=== PATIENT | female | born 1985 | race African-American/Black ===

== ENCOUNTER 2020-08-09 10:19 | Outpatient (REF) | payer OTHER, SELFPAY ==
[2020-08-09 11:19] LABS: MANUAL DIFF FLAG NO
[2020-08-09 11:23] LABS: Basophils Absolute Auto 0.1 X10*3/uL (0.0-0.2); Eosinophils Absolute Auto 0.2 X10*3/uL (0.0-0.4); Eosinophils Percent Auto 2.7 % (0-4); Hematocrit 39.6 % (37-47); Hemoglobin 12.3 g/dl (12.0-16.0); Imm Gran Abs Auto 0.04 X10*3/uL (0.00-0.03); Imm Gran Pct Auto 0.4 % (0.0-0.4); Lymphocytes Absolute Auto 2.6 X10*3/uL (1.2-4.9); Lymphocytes Percent Auto 28.5 % (20-40); Mean Corpuscular HGB Conc 31.1 g/dl (31.0-35.0); Mean Platelet Volume 10.1 fL (9.4-12.3); Monocytes Absolute Auto 0.6 X10*3/uL (0.1-1.2); Monocytes Percent Auto 6.3 % (2-11); Neutrophils Absolute Auto 5.5 X10*3/uL (2.0-8.3); Neutrophils Percent Auto 61.1 % (45-73); Platelet Count 308 X10*3/uL (160-400); Red Blood Count 4.55 X10*6/uL (4.20-5.50); Red Cell Distribution Width 14.6 % (11.0-16.0)
[2020-08-09 11:54] LABS: Anion Gap 12 (12-20); Blood Urea Nitrogen 10 mg/dL (9-16); Calcium 8.9 mg/dL (8.4-10.2); Carbon Dioxide 23 mmol/L (22-29); Chloride 109 mmol/L (96-108); Estimated Glomerular Filt Rate > 60; Glucose Fasting 98 mg/dL (60-99); Potassium 4.1 mmol/l (3.3-5.1); Sodium 140 mmol/L (135-145)
[2020-08-09 12:01] LABS: TSH reflex Free T4 1.02 mIU/mL (0.32-4.0)
[2020-08-10 11:47] LABS: LDL Cholesterol Direct 116 mg/dL (<100)
== END 2020-08-09 10:20 | disposition home or self-care (01) ==
LOC: HO.HMGCLDS 10:19
PROVIDERS: PCP Internal Medicine; Visit Provider Internal Medicine
DX: E66.9 Obesity, unspecified (principal); Z91.09 Other allergy status, other than to drugs and biological substances; R09.81 Nasal congestion; Z00.01 Encounter for general adult medical examination with abnormal findings
CPT/HCPCS: 36415; 80048; 83721; 84443; 85025

== ENCOUNTER 2020-09-02 09:02 | Outpatient (REF) | payer OTHER, SELFPAY | END 2020-09-02 09:03 | disposition home or self-care (01) | LOC: HO.LAB 09:02 | PROVIDERS: PCP Internal Medicine; Referring Provider Advanced Practice Midwife; Visit Provider Advanced Practice Midwife | DX: O20.0 Threatened abortion (principal) | CPT/HCPCS: 81025; 84702; 86850; 86900; 86901; 99211 ==

== ENCOUNTER 2020-09-18 13:26 | Outpatient (REF) | payer OTHER, SELFPAY | END 2020-09-18 13:27 | disposition home or self-care (01) | LOC: HO.LAB 13:26 | PROVIDERS: PCP Internal Medicine; Visit Provider Obstetrics & Gynecology | DX: O09.521 Supervision of elderly multigravida, first trimester (principal); O16.1 Unspecified maternal hypertension, first trimester | CPT/HCPCS: 81003; 99212 ==

== ENCOUNTER 2020-09-20 15:36 | Outpatient (REF) | payer OTHER, SELFPAY ==
--- NOTE | 2020-09-20 15:43 | US_ITS ---
EXAMINATION: OBSTETRICAL ULTRASOUND, FIRST TRIMESTER HISTORY: 35-year-old at 10.1 weeks AMA Viability LMP: 07/11/2020 COMPARISON: None in this TECHNIQUE: Real time transabdominal imaging with color and M-mode Doppler. FINDINGS: A single, live IUP CRL of 32.7 mm c/w 10.2wks is noted. Heart Rate: 169 beats per minute. Both maternal ovaries are seen and appear normal. GESTATIONAL AGE: 1. GA from LMP: 10.1 wks 2. GA from AUA: 10.2 wks ESTIMATED DATE OF DELIVERY: 1. HELLEN from LMP: 04/17/2021 2. HELLEN from AUA: 04/16/2021 US/US OB <= 14 weeks fetus IMPRESSION: 1. A single live IUP 2. CRL corresponds to 10.2 weeks of gestation confirming her HELLEN of 04/17/2021 Thank you very much for this referral.
[2020-09-20 17:04] LABS: MANUAL DIFF FLAG NO
[2020-09-20 17:05] LABS: Basophils Absolute Auto 0.1 X10*3/uL (0.0-0.2); Basophils Percent Auto 0.6 % (0-2); Eosinophils Absolute Auto 0.1 X10*3/uL (0.0-0.4); Hematocrit 37.1 % (37-47); Hemoglobin 12.2 g/dl (12.0-16.0); Imm Gran Abs Auto 0.03 X10*3/uL (0.00-0.03); Imm Gran Pct Auto 0.3 % (0.0-0.4); Lymphocytes Absolute Auto 2.1 X10*3/uL (1.2-4.9); Lymphocytes Percent Auto 21.5 % (20-40); Mean Corpuscular HGB Conc 32.9 g/dl (31.0-35.0); Mean Corpuscular Hemoglobin 27.4 pg (27.0-33.0); Mean Corpuscular Volume 83.2 fL (80-98); Mean Platelet Volume 9.8 fL (9.4-12.3); Monocytes Absolute Auto 0.4 X10*3/uL (0.1-1.2); Neutrophils Absolute Auto 7.2 X10*3/uL (2.0-8.3); Neutrophils Percent Auto 72.6 % (45-73); Platelet Count 314 X10*3/uL (160-400); Red Blood Count 4.46 X10*6/uL (4.20-5.50); Red Cell Distribution Width 12.6 % (11.0-16.0)
[2020-09-20 17:32] LABS: Alanine Aminotransferase 8 U/L (0-31); Albumin Level 4.1 g/dL (3.5-5.0); Alkaline Phosphatase 43 U/L (39-117); Anion Gap 12 (12-20); Aspartate Amino Transferase 11 U/L (5-31); Bilirubin Total 0.7 mg/dL (0.0-1.0); Blood Urea Nitrogen 6 mg/dL (9-16); Calcium 9.3 mg/dL (8.4-10.2); Carbon Dioxide 24 mmol/L (22-29); Chloride 104 mmol/L (96-108); Estimated Glomerular Filt Rate > 60; Glucose Random 87 mg/dL (60-115); Potassium 3.9 mmol/l (3.3-5.1); Sodium 136 mmol/L (135-145); Total Protein 6.6 g/dL (6.5-8.0)
[2020-09-20 17:32] LABS: Creatinine Urine 122.25 mg/dL; Protein/Creatinine Ratio, Ur 0.17 (<0.2); Total Protein Urine Random 21 mg/dL (<12)
[2020-09-20 17:47] LABS: Syphilis Screen Nonreactive (Nonreactive)
[2020-09-23 08:28] LABS: HBsAGNum1 0.25 S/CO (0.00-0.99); HIV AB/AG Nonreactive (Nonreactive); HIV Num 1 0.06 S/CO (0.00-0.99); Hepatitis B Surface Antigen Negative (Negative)
== END 2020-09-20 15:37 | disposition home or self-care (01) ==
LOC: HO.US 15:36
PROVIDERS: Absent Provider Obstetrics & Gynecology; PCP Internal Medicine; Visit Provider Advanced Practice Midwife
DX: O09.511 Supervision of elderly primigravida, first trimester (principal); O16.1 Unspecified maternal hypertension, first trimester; O26.891 Other specified pregnancy related conditions, first trimester; N92.6 Irregular menstruation, unspecified; Z3A.10 10 weeks gestation of pregnancy
CPT/HCPCS: 36415; 76801; 80053; 84156; 85025; 86780; 87086; 87340; 87389

== ENCOUNTER → 2020-09-25 14:03 | Outpatient (BNVA) | payer OTHER, SELFPAY | PROVIDERS: Visit Provider Obstetrics & Gynecology | DX: Z76.89 Persons encountering health services in other specified circumstances (principal) | CPT/HCPCS: 99212 ==

== ENCOUNTER → 2020-09-30 09:56 | Outpatient (BNVA) | payer OTHER, SELFPAY | PROVIDERS: PCP Internal Medicine; Visit Provider Advanced Practice Midwife | DX: Z13.89 Encounter for screening for other disorder (principal) | CPT/HCPCS: 99212 ==

== ENCOUNTER 2020-10-04 13:47 | Outpatient (REF) | payer OTHER, SELFPAY ==
--- NOTE | 2020-10-04 13:52 | US_ITS ---
EXAMINATION: OBSTETRICAL ULTRASOUND, FIRST TRIMESTER HISTORY: 35-year-old at 12.1 weeks of gestation AMA NT screening COMPARISON: 09/20/2020 TECHNIQUE: Real time transabdominal imaging with color and M-mode Doppler. FINDINGS: A single, live IUP CRL of 55.5 mm c/w 12.1wks is noted. Heart Rate: 165 beats per minute. Normal yolk sac seen. NT was 1.0.mm. NB Present The embryo appears sonographically wnl for this GA. Both maternal ovaries are seen and appear normal. GESTATIONAL AGE: 1. Established GA: 12.1 wks 2. GA from AUA: 12.2 wks ESTIMATED DATE OF DELIVERY: 1. Established HELLEN: 04/17/2021 2. HELLEN from [facility]: 04/16/2021 US/US OB 1T nuc measure IMPRESSION: 1. A single live IUP 2. Size equals dates 3. NT of 1.0 mm MFM Consultation: I reviewed the ultrasound findings along with significance of NT measurement. The NT of less than 3mm is generally reassuring. However, the sensitivity for T21 detection is only 60%. I reviewed the availability of serum aneuploidy screening which includes cell-free DNA and placental protein based tests. I discussed the sensitivity, false-positive rate, and other limitations associated with each test. I also reviewed the availability of invasive diagnostic tests that are associated small but definite risk of miscarriage. We also reviewed the differences between screening tests and diagnostic tests. After our discussion, she opted for the First trimester screening that is based on cell-free DNA or non-invasive testing (NIPT). The result will be faxed to your office in approximately 7 days. A follow up at 18 weeks for survey has been scheduled. Thank you very much for this referral. Majority of this visit was spent reviewing her care and counselling her in face to face time: Time spent 30 min.
== END 2020-10-04 13:48 | disposition home or self-care (01) ==
LOC: HO.US 13:47
PROVIDERS: Visit Provider Advanced Practice Midwife
DX: Z36.82 Encounter for antenatal screening for nuchal translucency (principal)
CPT/HCPCS: 76813

== ENCOUNTER 2020-10-16 10:05 | Outpatient (REF) | payer OTHER, SELFPAY ==
[2020-10-17 05:18] LABS: Rubella IgG Antibody 6.72 Index
[2020-10-17 09:05] LABS: BV Int Neg Control Negative (Negative); BV Int Pos Control Positive (Positive)
[2020-10-17 12:46] LABS: C. trachomatis RNA TMA DETECTED (NOT DETECTED); N. gonorrhoeae RNA TMA NOT DETECTED (NOT DETECTED)
[2020-10-19 09:32] LABS: HPV mRNA E6/E7 rflx Not Detected (Not Detected)
== END 2020-10-16 10:06 | disposition home or self-care (01) ==
LOC: HO.LAB 10:05
PROVIDERS: Advanced Practice Midwife; Visit Provider Obstetrics & Gynecology
DX: O16.1 Unspecified maternal hypertension, first trimester (principal); Z12.4 Encounter for screening for malignant neoplasm of cervix; Z11.3 Encounter for screening for infections with a predominantly sexual mode of transmission; Z3A.13 13 weeks gestation of pregnancy
CPT/HCPCS: 36415; 86762; 86787; 87480; 87491; 87510; 87591; 87624; 87660; 88142; 99212

== ENCOUNTER 2020-11-07 15:39 | Emergency (ER) | payer OTHER, SELFPAY ==
--- NOTE | ~2020-11-07 | US_ITS ---
EXAMINATION: LIMITED OBSTETRIC ULTRASOUND - SECOND TRIMESTER CLINICAL INFORMATION: Pelvic pain and pressure. Question of placental abnormality COMPARISON: 10/04/2020 TECHNIQUE: Transabdominal imaging of the uterus was performed utilizing arcos scale and color doppler technique, with m-mode imaging. FINDINGS: Single live intrauterine fetus in the breech position with cardiac activity detected at 158 bpm. movement is present. Amniotic fluid grossly within normal limits. Anterior placenta; no previa. No perigestational hemorrhage. Cervix measures 3.6 cm and is closed. US/US OB transvaginal IMPRESSION: * Single live intrauterine fetus with estimated gestational age by ultrasound of 17 weeks 0 days, for an estimated date of delivery 04/17/2021. * Normal placenta. No abruption.
--- NOTE | ~2020-11-07 | US_ITS ---
EXAMINATION: LIMITED OBSTETRIC ULTRASOUND - SECOND TRIMESTER CLINICAL INFORMATION: Pelvic pain and pressure. Question of placental abnormality COMPARISON: 10/04/2020 TECHNIQUE: Transabdominal imaging of the uterus was performed utilizing arcos scale and color doppler technique, with m-mode imaging. FINDINGS: Single live intrauterine fetus in the breech position with cardiac activity detected at 158 bpm. movement is present. Amniotic fluid grossly within normal limits. Anterior placenta; no previa. No perigestational hemorrhage. Cervix measures 3.6 cm and is closed. US/US OB limited IMPRESSION: * Single live intrauterine fetus with estimated gestational age by ultrasound of 17 weeks 0 days, for an estimated date of delivery 04/17/2021. * Normal placenta. No abruption.
[2020-11-07 15:42] VITALS: BP 129/85; PULSE 89; RESP 18; TEMP 36.9; O2SAT 98; BMI 31.2
--- NOTE | 2020-11-07 16:49 | ED.ABDPAIN ---
HPI - Abdominal Pain General Chief Complaint: Abdominal Pain Stated Complaint: belly button infection Time Seen by Provider: 11/07/20 16:30 Source: patient Mode of arrival: ambulatory Limitations: no limitations History of Present Illness HPI narrative: 35-year-old female 17 weeks , presented with 2 days of intermittent lower abdominal cramps, declined any vaginal bleed or discharge, cramps started 2 days ago, intermittent in course, described it as cramps, associated with nausea, but no vaginal bleed or discharge, patient also documented small discharged yesterday from an old piercing above her umbilicus. Patient had history with blood pressure complication with her pregnancies in the past, patient is today blood pressure appear within normal and patient declined any headache or blurry vision or chest pain. Related Data Previous Rx's Medication Instructions Recorded nifedipine 30 mg tablet,extended 30 mg PO DAILY #90 tab 09/18/20 release vitamins with calcium 1 tab PO DAILY 30 Days #30 tab 09/25/20 no.72-iron 29 mg-folic acid 1 mg tablet labetalol 200 mg tablet 200 mg PO BID #120 tab 10/16/20 azithromycin 500 mg tablet 1,000 mg PO ONCE 1 Days #2 tab 10/17/20 cephalexin 500 mg PO BID #14 cap 11/07/20 Allergies Allergy/AdvReac Type Severity Reaction Status Date / Time No Known Allergies Allergy Verified 10/16/20 10:31 Review of Systems Review of Systems All other systems are reviewed and are negative Constitutional: Reports as per HPI and Reports no additional constitutional complaints Eyes: Reports as per HPI and Reports no additional eye complaints Reports system reviewed and no additional complaints, except as documented Cardiovascular: Reports as per HPI and Reports no additional cardiovascular complaints Respiratory: Reports as per HPI and Reports no additional respiratory complaints Gastrointestinal: Reports as per HPI and Reports no additional gastrointestinal complaints Genitourinary: Reports no additional female genitourinary complaints Musculoskeletal: Reports no additional musculoskeletal complaints Skin/Breast: Reports system reviewed and no additional complaints, except as docu Psychiatric: Reports no additional psychiatric complaints Endocrine: Reports no additional endocrine complaints Hematologic/Lymphatic: Reports no additional hematologic/lymphatic complaints Allergic/Immunologic: Reports no additional allergic/immunologic complaints Reports system reviewed and no additional complaints, except as documented and Reports Abnormal speech present Physical Exam Vital Signs: Vital Signs: Last Vital Signs Temp 98.4 F 03/04/21 20:02 Pulse 84 11/07/20 20:04 Resp 22 H 11/07/20 20:02 BP 105/65 11/07/20 20:04 Pulse Ox 100 11/07/20 20:02 Body Mass Index 31.2 Vital signs have been reviewed as appeared to be correct. Blood pressure normal. Heart rate normal. Respiration rate normal. Temperature normal. Oxygen saturation normal. Appearance: Alert. Oriented X3. No acute distress. Head: Normal external exam. Normocephalic. Atraumatic. No Avila signs noted. No raccoon eyes noted Eyes: PERRLA. EOMI. Conjunctiva and sclera normal. Eyelids normal. ENT: TM's Normal. Pharynx normal. Uvula midline. Moist mucous membranes. No trismus noted. No drooling noted. No muffled voice noted. Neck: Normal inspection. Neck supple. FROM. No adenopathy. Thyroid Normal. No meningeal signs. No neck mass noted. CVS: Normal heart rate and rhythm. Heart sound normal. No murmurs noted. Pulses normal throughout. Respiratory: No respiratory distress. Painless inspiration. Breath sounds normal. No wheezes/rales/rhonchi noted. Chest nontender. No accessory muscle usage noted or decreased air movement noted. Abdomen: Soft, mild suprapubic tenderness with no rebound, no guarding. 1 x 1 cm area of redness and hotness above the umbilical area, no discharge. Bowel sounds normal in all 4 quadrants. No distention noted. No organomegaly noted. No visible injury noted. Back: No CVA tenderness. Full range of motion noted. Skin: Skin warm and dry. Normal skin color. Normal skin turgor. No rashes/lesions/lacerations noted. Extremities: No lower extremity edema. Extremities exhibit normal range of motion. Extremities nontender. Neuro: Oriented X 3. No motor deficit. No sensory deficit. Reflexes normal. Course Course Course Narrative: Assessment and plan. 35-year-old female 17 weeks came in with abdominal contractions for the past 2 weeks on and off, no vaginal bleed or discharge, patient had unremarkable ultrasound in the emergency department today, unremarkable vital signs, in particular blood pressure within normal. Patient was instructed to follow-up with her OBGYN doctor (patient already have an appointment next week). Patient has a small cellulitis with slight leukocytosis. Will start patient on Keflex for 7 days. MDM - Abdominal Pain Lab Data Attestation: I reviewed the patient's lab results. Result diagrams: 11/07/20 17:46 11/07/20 17:46 Labs: Lab Results 11/07/20 11/07/20 11/07/20 Range/Units 17:46 17:46 17:46 WBC 11.0 H (4.8-10.8) X10*3/uL RBC 4.02 L (4.20-5.50) X10*6/uL Hgb 11.0 L (12.0-16.0) g/dl Hct 34.2 L (37-47) % MCV 85.1 (80-98) fL MCH 27.4 (27.0-33.0) pg MCHC 32.2 (31.0-35.0) g/dl RDW 13.0 (11.0-16.0) % Plt Count 276 (160-400) X10*3/uL MPV 9.6 (9.4-12.3) fL Immature Gran % (Auto) 0.5 H (0.0-0.4) % Neut % (Auto) 73.5 H (45-73) % Lymph % (Auto) 19.1 L (20-40) % [place] % (Auto) 4.8 (2-11) % Eos % (Auto) 1.6 (0-4) % Baso % (Auto) 0.5 (0-2) % Lymph # (Auto) 2.1 (1.2-4.9) X10*3/uL [place] # (Auto) 0.5 (0.1-1.2) X10*3/uL Eos # (Auto) 0.2 (0.0-0.4) X10*3/uL Baso # (Auto) 0.1 (0.0-0.2) X10*3/uL Abs Immat Gran (auto) 0.06 H (0.00-0.03) X10*3/uL Absolute Neuts (auto) 8.1 (2.0-8.3) X10*3/uL Absolute Nucleated RBC 0.000 (0.0-0.012) X10*3/uL Nucleated RBC % (auto) 0.0 (0.0-0.2) /100WBC Sodium 135 (135-145) mmol/L Potassium 3.6 (3.3-5.1) mmol/L Chloride 105 (96-108) mmol/L Carbon Dioxide 24 (22-29) mmol/L Anion Gap 10 L (12-20) BUN 10 D (9-16) mg/dL Creatinine 0.77 (0.5-1.4) mg/dL Estim Creat Clear Calc 97.3 Estimated GFR > 60 Random Glucose 82 (60-115) mg/dL Calcium 8.8 (8.4-10.2) mg/dL Total Bilirubin 0.4 (0.0-1.0) mg/dL Direct Bilirubin < 0.2 (0.0-0.5) mg/dL AST 11 (5-31) U/L ALT 6 (0-31) U/L Alkaline Phosphatase 42 (39-117) U/L Total Protein 6.2 L (6.5-8.0) g/dL Albumin 3.6 (3.5-5.0) g/dL Lipase 29 (8-78) U/L Beta HCG, Quant 38501 mIU/mL Urine Color YELLOW Urine Appearance CLEAR Urine pH 7.0 (5.0-8.0) Ur Specific [place] 1.020 (1.005-1.025) Urine Protein NEG (NEG-TRACE) MG/DL Urine Glucose (UA) NEG (NEG) MG/DL Urine Ketones 5 (NEG) MG/DL Urine Blood NEG (NEG) Urine Nitrite NEG (NEG) Ur Leukocyte Esterase NEG (NEG) Imaging Data Pelvic ultrasound: Radiologist's impression: * Single live intrauterine fetus with estimated gestational age by ultrasound of 17 weeks 0 days, for an estimated date of delivery 04/17/2021. * Normal placenta. No abruption. Discharge Plan Discharge Clinical Impression: Abdominal pain during , Cellulitis Patient Disposition: Home, Self-Care Instructions: Cellulitis (ED), Abdominal Pain in (ED) Prescriptions: New cephalexin 500 mg capsule 500 mg PO BID Qty: 14 RF: 0 No Action Plus 29 mg iron- 1 mg tablet 1 tab PO DAILY 30 Days Qty: 30 RF: 11 azithromycin [Zithromax] 500 mg tablet 1,000 mg PO ONCE 1 Days Qty: 2 RF: 0 nifedipine 30 mg tablet extended release 30 mg PO DAILY Qty: 90 RF: 3 labetalol 200 mg tablet 200 mg PO BID Qty: 120 RF: 3 Referrals: Trudy Shah MD [Physician] - 1 week Interventions: ED Discharge Assessment Last Done: 11/07/20 21:01 Discharge Date/Time: 11/07/20 21:02 [facility] Past Medical History Medical History Environmental allergies Hypertension affecting Nasal congestion Obesity Surgical History No pertinent past surgical history Family History Family History Father HTN (hypertension) Diabetes mellitus Mother No problems noted. Brother No problems noted. Brother No problems noted. Brother No problems noted. Brother No problems noted. 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 Current occupational exposures/hazards: No
--- NOTE | 2020-11-07 17:42 | PC.NURSE ---
PT TO ULTRASOUND
[2020-11-07 17:55] LABS: MANUAL DIFF FLAG NO
[2020-11-07] MEDS: 0.9 % Sodium Chloride 1,000 ML 999 ML IVCONT (18:00)
[2020-11-07 18:01] LABS: Glucose Urine UA NEG (NEG); Leukocyte Esterase Urine NEG (NEG); Nitrite Urine NEG (NEG); Urine Blood NEG (NEG); Urine Ketones 5 MG/DL (NEG); Urine Protein NEG (NEG-TRACE)
[2020-11-07 18:03] LABS: Basophils Absolute Auto 0.1 X10*3/uL (0.0-0.2); Basophils Percent Auto 0.5 % (0-2); Eosinophils Absolute Auto 0.2 X10*3/uL (0.0-0.4); Eosinophils Percent Auto 1.6 % (0-4); Hematocrit 34.2 % (37-47); Imm Gran Abs Auto 0.06 X10*3/uL (0.00-0.03); Imm Gran Pct Auto 0.5 % (0.0-0.4); Lymphocytes Absolute Auto 2.1 X10*3/uL (1.2-4.9); Lymphocytes Percent Auto 19.1 % (20-40); Mean Corpuscular HGB Conc 32.2 g/dl (31.0-35.0); Mean Corpuscular Hemoglobin 27.4 pg (27.0-33.0); Mean Corpuscular Volume 85.1 fL (80-98); Mean Platelet Volume 9.6 fL (9.4-12.3); Monocytes Absolute Auto 0.5 X10*3/uL (0.1-1.2); Monocytes Percent Auto 4.8 % (2-11); Neutrophils Absolute Auto 8.1 X10*3/uL (2.0-8.3); Neutrophils Percent Auto 73.5 % (45-73); Platelet Count 276 X10*3/uL (160-400); Red Blood Count 4.02 X10*6/uL (4.20-5.50)
[2020-11-07 18:04] LABS: Appearance Urine CLEAR; Color Urine YELLOW
[2020-11-07 18:24] LABS: Alanine Aminotransferase 6 U/L (0-31); Albumin Level 3.6 g/dL (3.5-5.0); Alkaline Phosphatase 42 U/L (39-117); Anion Gap 10 (12-20); Aspartate Amino Transferase 11 U/L (5-31); Bilirubin Direct < 0.2 mg/dL (0.0-0.5); Bilirubin Total 0.4 mg/dL (0.0-1.0); Blood Urea Nitrogen 10 mg/dL (9-16); Calcium 8.8 mg/dL (8.4-10.2); Carbon Dioxide 24 mmol/L (22-29); Chloride 105 mmol/L (96-108); Creatinine Clr Calc Pharmacy 97.3; Estimated Glomerular Filt Rate > 60; Glucose Random 82 mg/dL (60-115); Lipase 29 U/L (8-78); Potassium 3.6 mmol/L (3.3-5.1); Sodium 135 mmol/L (135-145); Total Protein 6.2 g/dL (6.5-8.0)
[2020-11-07 19:02] LABS: HCG Quantitative 19684 mIU/mL
[2020-11-07 20:02] VITALS: BP 101/65; PULSE 83; RESP 22; TEMP 36.9; O2SAT 100
[2020-11-07 20:04] VITALS: BP 105/65; PULSE 84
[2020-11-07] MEDS: cephALEXin 500 MG CAPSULE PO (20:55)
== END 2020-11-07 21:02 | disposition home or self-care (01) ==
PROVIDERS: Emergency Provider Emergency Medicine; PCP Internal Medicine
DX: O26.892 Other specified pregnancy related conditions, second trimester (principal); L03.316 Cellulitis of umbilicus; R10.30 Lower abdominal pain, unspecified; Z3A.17 17 weeks gestation of pregnancy
CPT/HCPCS: 36415; 76815; 76817; 80048; 80076; 81003; 83690; 84702; 85025; 96360; 99283; 99284

== ENCOUNTER → 2020-11-13 11:00 | Outpatient (BNVA) | payer OTHER, SELFPAY | PROVIDERS: Visit Provider Advanced Practice Midwife | DX: O16.1 Unspecified maternal hypertension, first trimester (principal); O09.299 Supervision of pregnancy with other poor reproductive or obstetric history, unspecified trimester; Z36.3 Encounter for antenatal screening for malformations; Z87.59 Personal history of other complications of pregnancy, childbirth and the puerperium | CPT/HCPCS: 81003; 99212 ==

== ENCOUNTER 2020-11-22 14:04 | Outpatient (REF) | payer OTHER, SELFPAY ==
--- NOTE | ~2020-11-22 | US_ITS ---
EXAMINATION: US OBSTETRICAL CLINICAL INFORMATION: 35-year-old at 19.1 weeks of gestation AMA Screening for anomaly COMPARISON: 11/07/2020 TECHNIQUE: Real-time transabdominal ultrasound was performed using C1-5 megahertz transducer. FINDINGS: A single, active, fetus is seen in vertex presentation. The placenta is anterior without previa, and the amniotic fluid volume is wnl. MEASUREMENTS: 1. Biparietal Diameter: 4.4 cm; 19.2 wks 2. Occipital Frontal Diameter: 5.6 cm 3. Head Circumference: 16.5 cm; 19.2 wks 4. Abdominal Circumference: 13.9 cm; 19.3 wks 5. Femur Length: 2.4 cm; 17.1 wks 6. Humerus Length: 2.8 cm; 19.0 wks 7. Tibia Length: 2.6 cm; 19.3 wks 8. Ulna Length: 2.6 cm; 19.3 wks 9. Lateral ventricle: 0.6 cm 10. Cerebellum: 1.9 cm; 19.6 wks 11. Cisterna Magna: 0.5 cm 12. Nuchal Fold: 3.5 mm 13. Heart Rate: 146 beats per minute Rt ovary: Unable to visualize Lt ovary: Unable to visualize Cervical length 3.6 cm on T/A. GESTATIONAL AGE: 1. Established GA: 19.1 wks 2. GA from [facility]: 18.6 wks ESTIMATED DATE OF DELIVERY: 1. Established HELLEN: 04/17/2021 2. HELLEN from [facility]: 04/19/2021 ANATOMY: The visualized anatomy includes but not limited to: 1. Cranium: Normal 2. Intracranial anatomy: cavum septum pellucidi, lateral ventricles, choroid plexus, cerebellum, posterior fossa, third and fourth ventricles. 3. face: orbits, lip/palate, profile, nasal bone 4. Heart: four-chamber view of the heart, ventricular septum, foramen ovale, pulmonary vein, left and right outflow tracts, three-vessel view, 3 vessel trachea view, aortic and ductal arches, situs.. 5. Diaphragm: Normal 6. Abdominal wall: Normal 7. Cord Insertion: Normal 8. Spine: Cervical, thoracic, lumbar, sacral. 9. Stomach: Normal size and shape 10. Right Kidney: Normal 11. Left Kidney: Normal 12. 3 vessel cord: Normal 13. Upper extremity: Open hands, fifth digit. 14. Lower extremity: Tibia, fibula, bilateral feet. 15. Bladder: Normal 16. Genitalia: Female, patient aware US/US OB /maternal detail IMPRESSION: 1. Single, living, intrauterine with appropriate biometry. 2. Normal survey DISCUSSION: I reviewed today's ultrasound findings. We discussed the limitations of ultrasound in diagnosing aneuploidy and other congenital abnormalities. I reviewed the differences between screening test and diagnostic test. Amniocentesis was discussed and declined. She was informed that the baseline incidence of congenital abnormalities is approximately 3-5%. Not all these conditions are diagnosable in utero. RECOMMENDATIONS: 1. No further follow-up is scheduled. Thank you for allowing me to participate in her care. Total time 20 minutes. The time spent was devoted to counseling the patient about the disease and diagnosis, coordinating care including reviewing her records, pertinent lab data and studies, as well as discussing diagnostic evaluation and workup, plan therapeutic interventions and future disposition of care. This includes any additional research needed to obtain further information in formulating the plan of care of this patient. This note was generated with a voice recognition program. Please excuse any errors which may have been overlooked during my review of this note. Sometimes these errors may affect the content or meaning of a given sentence.
== END 2020-11-22 14:05 | disposition home or self-care (01) ==
LOC: HO.US 14:04
PROVIDERS: Visit Provider Advanced Practice Midwife
DX: Z36.3 Encounter for antenatal screening for malformations (principal); O16.2 Unspecified maternal hypertension, second trimester; O09.292 Supervision of pregnancy with other poor reproductive or obstetric history, second trimester; Z3A.19 19 weeks gestation of pregnancy; Z79.899 Other long term (current) drug therapy
CPT/HCPCS: 76811

== ENCOUNTER 2022-09-22 23:51 | Emergency (ER) | payer OTHER, SELFPAY ==
--- NOTE | ~2022-09-22 | XR_ITS ---
EXAMINATION: XR FOOT, LEFT XR ANKLE, LEFT CLINICAL INFORMATION: Twisted ankle COMPARISON: None TECHNIQUE: 3 views of the left foot. 2 additional views of the left ankle. FINDINGS: Left foot: No fracture or dislocation. Alignment maintained. Joint spaces maintained. Mild soft tissue swelling of the forefoot. Left ankle: No fracture or dislocation. The ankle mortise is congruent. The soft tissues are unremarkable. No ankle joint effusion. XR/XR foot LT min 3V IMPRESSION: Mild soft tissue swelling of the forefoot. No fracture or malalignment.
--- NOTE | ~2022-09-22 | XR_ITS ---
EXAMINATION: XR FOOT, LEFT XR ANKLE, LEFT CLINICAL INFORMATION: Twisted ankle COMPARISON: None TECHNIQUE: 3 views of the left foot. 2 additional views of the left ankle. FINDINGS: Left foot: No fracture or dislocation. Alignment maintained. Joint spaces maintained. Mild soft tissue swelling of the forefoot. Left ankle: No fracture or dislocation. The ankle mortise is congruent. The soft tissues are unremarkable. No ankle joint effusion. XR/XR ankle LT 2V IMPRESSION: Mild soft tissue swelling of the forefoot. No fracture or malalignment.
[2022-09-23 00:01] VITALS: BP 140/92; PULSE 98; O2SAT 99
[2022-09-23 00:34] VITALS: BP 158/79; PULSE 89; RESP 16; TEMP 36.6; O2SAT 98; BMI 35.4
[2022-09-23 02:00] VITALS: BP 121/76; PULSE 75; RESP 17; TEMP 36.7
--- OUTSIDE RECORDS SUMMARY | 2022-09-23 03:31 | XMS_ITS | Continuity of Care Document ---
:1985 Author Organization [facility] Address [address] [place] [address]- Care Team Providers Name Role Phone Not on Staff, PCP Primary Care Physician Unavailable Encounter [facility] [place] Date(s): 12/10/20 - 12/10/[address] [id number] Discharge Disposition: A-D/C Home Attending Physician: Lalo PALACIOS, Griselda Admitting Physician: Lalo PALACIOS, Griselda Referring Physician: Griselda May MD Allergies, Adverse Reactions, Alerts Substance Reaction Severity Status NKA Active Immunizations Given and Recorded Vaccine Date Status Refusal Reason influenza virus vaccine, inactivated1 06/02/10 Given influenza virus vaccine, inactivated2 09/09/07 Given Tetanus-Diphth Toxoids, Adult (oldterm)3 05/24/09 Given Influenza Vaccine (oldterm)4 05/24/09 Given 1Admin Note: VIS given Admin Note: VIS [id number] Note: vis given dated 07/144Admin Note: vis given dated 04/14 Medications labetalol 200 mg oral tablet 1 tablet = 200 mg, By Mouth, 2 times a day, # 60 tablet, 0 Refills, Maintenance, 12/10/20 18:14:00 EDT, Tablet, Partial fill upon patient request if the prescription is for a schedule II opioid drug. Start Date: 12/10/20 Status: OrderedPrenatal Multivitamins By Mouth, Daily, 0 Refills, Maintenance, 12/10/20 17:43:00 EDT, Partial fill upon patient request ifthe prescription is for a schedule II opioid drug. 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 Procedures Procedure Date Related Diagnosis Body Site Status Extraction of wisdom tooth C ompleted Operation on vocal cord Comp leted Vital Signs Most recent to oldest [Reference Range]: 1 Weight 82.6 kg (12/10/20 5:28 PM) Oxygen Saturation [94-100 %] 100 % (12/10/20 5:28 PM) Pulse Rate [55-90 bpm] 79 bpm (12/10/20 5:28 PM) Blood Pressure [90-138/55-84 mm Hg] 133/78 mm Hg (12/10/20 5:28 PM) Respiratory Rate [16-30 br/min] 20 br/min (12/10/20 5:28 PM) Temperature [96.8-100.4 DegF] 98.4 DegF (12/10/20 5:28 PM) Mode of Delivery (Oxygen) Room air (12/10/20 5:28 PM) Blood pressure sites Arm, left 1 (12/10/20 5:28 PM) Temperature Route Oral (12/10/20 5:28 PM) Dry Weight 82.6 kg (12/10/20 5:28 PM) Weight Obtained Via Standing scale (12/10/20 5:28 PM) Dry Weight Obtained Via Standing scale (12/10/20 5:28 PM) 1Result Comment: left arm measured at 32cm
--- OUTSIDE RECORDS SUMMARY | 2022-09-23 03:31 | XMS_ITS | Continuity of Care Document ---
:1985 Author Organization [facility] Address [address] [place] [id number]- Care Team Providers Name Role Phone Not on Staff, PCP Primary Care Physician Unavailable Encounter [facility] Date(s): 09/24/20 - 10/24/[address] [id number] Allergies, Adverse Reactions, Alerts Substance Reaction Severity Status NKA Active Immunizations Given and Recorded Vaccine Date Status Refusal Reason influenza virus vaccine, inactivated1 06/02/10 Given influenza virus vaccine, inactivated2 09/09/07 Given Tetanus-Diphth Toxoids, Adult (oldterm)3 05/24/09 Given Influenza Vaccine (oldterm)4 05/24/09 Given 1Admin Note: VIS given Admin Note: VIS [id number] Note: vis given dated 07/144Admin Note: vis given dated 04/14 Problem List Condition Effective Dates Status Health Status Informant Anemia(Confirmed) Active 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
--- OUTSIDE RECORDS SUMMARY | 2022-09-23 03:31 | XMS_ITS | Continuity of Care Document ---
:1985 Author Organization [facility] Address [address] [place] [id number]- Care Team Providers Name Role Phone Esa PALACIOS, Asma Primary Care Physician Encounter [facility] [place] Date(s): 12/14/20 - 12/15/[address] [address]- Encounter Diagnosis Headache, migraine (Final) - 12/15/20 Discharge Disposition: A-D/C Home Attending Physician: Livia Vega DO Admitting Physician: Livia Vega DO Referring Physician: Not on Staff, Referring MD Allergies, Adverse Reactions, Alerts Substance Reaction Severity Status NKA Active Immunizations Given and Recorded Vaccine Date Status Refusal Reason influenza virus vaccine, inactivated1 06/02/10 Given influenza virus vaccine, inactivated2 09/09/07 Given Tetanus-Diphth Toxoids, Adult (oldterm)3 05/24/09 Given Influenza Vaccine (oldterm)4 05/24/09 Given 1Admin Note: VIS given Admin Note: VIS [id number] Note: vis given dated 07/144Admin Note: vis [...] - 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) Vital Signs Most recent to oldest 1 2 3 [Reference Range]: Oxygen Saturation [94-100 %] 100 % 100 % 98 % (12/15/20 12:28 AM) (12/14/20 6:41 PM) (12/14/20 3: 05 PM) Pulse Rate [55-90 bpm] 76 bpm 79 bpm 84 bpm (12/15/20 12:28 AM) (12/14/20 6:41 PM) (12/14/20 3: 05 PM) Blood Pressure [90-138/55-84 115/65 mm Hg 116/70 mm Hg mm Hg] (12/14/20 6:41 PM) (12/14/20 3:05 PM) Respiratory Rate [16-30 16 br/min 18 br/min br/min] (12/14/20 6:41 PM) (12/14/20 3:05 PM) Temperature [96.8-100.4 DegF] 98.2 DegF 98.2 DegF (12/14/20 6:41 PM) (12/14/20 3:05 PM) Mode of Delivery (Oxygen) Room air Room air Room a ir (12/15/20 12:28 AM) (12/14/20 6:41 PM) (12/14/20 3: 05 PM) Blood pressure sites Arm, right Arm, left (12/14/20 6:41 PM) (12/14/20 3:05 PM) Temperature Route Oral Oral (12/14/20 6:41 PM) (12/14/20 3:05 PM)
--- OUTSIDE RECORDS SUMMARY | 2022-09-23 03:31 | XMS_ITS | Continuity of Care Document ---
:1985 Author Organization [facility] Address [address] [place] [id number]- Care Team Providers Name Role Phone Not on Staff, PCP Primary Care Physician Unavailable Encounter [facility] Date(s): 11/07/20 - 12/07/[address] [address]- Allergies, Adverse Reactions, Alerts Substance Reaction Severity Status NKA Active Immunizations Given and Recorded Vaccine Date Status Refusal Reason influenza virus vaccine, inactivated1 06/02/10 Given influenza virus vaccine, inactivated2 09/09/07 Given Tetanus-Diphth Toxoids, Adult (oldterm)3 05/24/09 Given Influenza Vaccine (oldterm)4 05/24/09 Given 1Admin Note: VIS given Admin Note: VIS [id number] Note: vis given dated 07/144Admin Note: vis given dated 04/14 Problem List Condition Effective Dates Status Health Status Informant Anemia(Confirmed) Active 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
--- OUTSIDE RECORDS SUMMARY | 2022-09-23 03:31 | XMS_ITS | Continuity of Care Document ---
:1985 Author Organization [facility] Address [address] [place] [id number] Care Team Providers Name Role Phone Esa PALACIOS, Asma Primary Care Physician Encounter [facility] [place] Date(s): 04/03/21 - 04/06/[address] [id number] Discharge Disposition: A-D/C Home Attending Physician: Griselda May MD Admitting Physician: Griselda May MD Referring Physician: Griselda May MD Allergies, Adverse Reactions, Alerts Substance Reaction Severity Status NKA Active Immunizations Given and Recorded Vaccine Date Status Refusal Reason influenza virus vaccine, inactivated1 06/02/10 Given influenza virus vaccine, inactivated2 09/09/07 Given Tetanus-Diphth Toxoids, Adult (oldterm)3 05/24/09 Given Influenza Vaccine (oldterm)4 05/24/09 Given 1Admin Note: VIS given Admin Note: VIS [id number] Note: vis given dated 07/144Admin Note: vis given dated 04/14 Medications acetaminophen 325 mg oral tablet 650 mg, By Mouth, Every 4 hours, PRN, (1-3), may give 325mg per patient preference and re-dose with 325mg within 4 hours, if needed. Patient should only receive a total of 650mg of Acetaminophen every 4 hours., # 20 tablet, Refills 0, Tot. Refills 0... Start Date: 04/06/21 Stop Date: 04/11/21 Status: OrderedAcetaminophen Tablet 650 mg, Tablet, By Mouth, Every 4 hours, PRN for Pain , Mild, (1-3), may give 325mg per patient preference and re-dose with 325mg within 4 hours, if needed. Patient should only receive a total of 650mgof Acetaminophen every 4 hours., Routine, 04/05... Start Date: 04/05/21 Stop Date: 04/07/21 Status: Discontinuedibuprofen 800 mg oral tablet 800 mg, 1, tablet, By Mouth, Every 8 hours, PRN, (4-6), may give 400mg per patient preference and re-dose with 400mg within 8 hours if needed. Patient should only receive a total of 800mg of Ibuprofen every 8 hours., # 20 tablet, Refills 0, Tot. Ref... Start Date: 04/06/21 Stop Date: 04/12/21 Status: OrderedIbuprofen Tablet 800 mg, Tablet, By Mouth, Every 8 hours, PRN for Pain , Moderate, (4-6), may give 400mg per patient preference and re-dose with 400mg within 8 hours if needed. Patient should only receive a total of 800mg of Ibuprofen every 8 hours., Routine, 04/05/... Start Date: 04/05/21 Stop Date: 04/07/21 Status: Discontinuedlabetalol 200 mg oral tablet 1 tablet = [...] Most recent to oldest 1 2 3 4 [Reference Range]: Height 158 cm 158 cm 158 cm (04/06/21 8:00 AM) (04/06/21 8:00 AM) (04/06/21 4:07 AM) Weight 92 kg (04/03/21 8:32 PM) Oxygen Saturation 98 % 98 % 95 % [94-100 %] (04/06/21 8:00 AM) (04/06/21 8:00 AM) (04/06/21 4:07 AM) Pulse Rate [55-90 bpm] 77 bpm 77 bpm 82 bpm (04/06/21 8:00 AM) (04/06/21 8:00 AM) (04/06/21 4:07 AM) Body Mass Index 36.85 [18.5-24.99] *>HHI* (04/03/21 8:32 PM) Blood Pressure 143/83 mm Hg 143/83 mm Hg 131/79 mm Hg [90-138/55-84 mm Hg] *H* *H* (04/06/21 4:07 AM) (04/06/21 8:00 AM) (04/06/21 8:00 AM) Respiratory Rate [16-30 20 br/min 20 br/min 20 br/min 20 b r/min br/min] (04/06/21 9:12 AM) (04/06/21 9:12 AM) (04/06/21 8:00 AM) (04/06/21 8:00 AM) Temperature [96.8-100.4 97.7 DegF 97.7 DegF 97.9 DegF DegF] (04/06/21 8:00 AM) (04/06/21 8:00 AM) (04/06/21 12:01 AM) Mode of Delivery Room air Room air Room air (Oxygen) (04/06/21 4:07 AM) (04/06/21 12:01 AM) (04/05/21 8:07 PM) Blood pressure sites Arm, left Arm, left Arm, left (04/06/21 4:07 AM) (04/06/21 12:01 AM) (04/05/21 8:07 PM) Temperature Route Oral Oral Oral (04/06/21 8:00 AM) (04/06/21 8:00 AM) (04/06/21 12:01 AM) Dry Weight 92 kg (04/03/21 8:32 PM)
--- NOTE | 2022-09-23 04:30 | ED.LOWEXIN ---
HPI - Extremity Injury (Lower) General Chief Complaint: Extremity Injury, Lower Stated Complaint: left foot swelling Time Seen by Provider: 09/23/22 04:04 Source: patient Mode of arrival: ambulatory Limitations: no limitations History of Present Illness HPI Narrative: 29-year-old female who presents emergency department for evaluation of injuries to her left ankle and foot. Patient states she was walking down stairs when her right foot gave out on her causing her to miss step with her left foot on the last stair. Patient states that her foot bent under her and her ankle twisted. She states that she was unable to bear weight after this injury. She is currently complaining of pain in the left ankle and left foot. She denied any other injury. She did take an [id number] pain medication prior to coming to emergency department with no relief for symptoms. Related Data Previous Rx's Medication Instructions Recorded vitamins with calcium 1 tab PO DAILY 30 days #30 tabs 09/25/20 no.72-iron 29 mg-folic acid 1 mg tablet ( Plus) labetalol 200 mg tablet 200 mg PO BID #120 tabs 10/16/20 Allergies Allergy/AdvReac Type Severity Reaction Status Date / Time No Known Allergies Allergy Verified 12/14/20 13:29 Review of Systems Review of Systems: Yes all other systems are reviewed and are negative PMFSH Past Medical History Medical History Environmental allergies Hypertension affecting Nasal congestion Obesity Surgical History No pertinent past surgical history Family History Family History Father HTN (hypertension) Diabetes mellitus Mother No problems noted. Brother No problems noted. Brother No problems noted. Brother No problems noted. Brother No problems noted. 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 Current occupational exposures/hazards: No Physical Exam Vital Signs: Vital Signs: Last Vital Signs Temp 98.0 F 09/23/22 02:00 Pulse 75 09/23/22 02:00 Resp 17 09/23/22 02:00 BP 121/76 09/23/22 02:00 Pulse Ox 98 09/23/22 00:34 O2 Del Method 09/23/22 00:34 O2 Flow Rate 97 09/23/22 02:00 BMI result Body Mass Index 35.4 General: Awake, alert, female patient, pleasant, cooperative, no distress extremity: The patient has tenderness with palpation over the lateral and medial malleolus as well as over the foot with no localizing point tenderness, there is soft tissue swelling over the foot. Patient's extremities neurovascular intact Medical Decision Making Medical Decision Making MDM Narrative: 37-year-old female who presents emergency department for evaluation of left foot and left ankle injury while walking down stairs. Patient's examination did reveal tenderness with palpation over her ankle and foot with soft tissue swelling over the foot. X-rays of the foot and ankle were interpreted by me as no acute fracture. Radiology reading similar. Patient was placed in a walking boot and given crutches. She was given printed and verbal instructions. She was advised to take Tylenol ibuprofen for pain. She was referred to our orthopedic group for follow-up in 1-2 weeks for re-evaluation. Differential Diagnosis Differential diagnosis includes was not limited to foot fracture, foot sprain, ankle fracture, ankle sprain Independent Interpretation I performed an independent interpretation of an: Plain X-Ray ( left foot, left ankle x-rays) Radiology Impression Discussion of test interpretation with radiology: I have reviewed the radiologist's reading. Radiologist Impression: 3 views of the left foot. 2 additional views of the left ankle.? FINDINGS: Left foot: No fracture or dislocation. Alignment maintained. Joint spaces maintained. Mild soft tissue swelling of the forefoot. Left ankle: No fracture or dislocation. The ankle mortise is congruent. The soft tissues are unremarkable. No ankle joint effusion.? IMPRESSION: Mild soft tissue swelling of the forefoot. No fracture or malalignment. Dictated By: Rashawn Tompkins MD Signed By:<Electronically signed by Rashawn Tompkins MD in OV>09/23/22 0112 Discharge Plan Discharge Clinical Impression: Sprain of left foot Qualifiers: Encounter type: initial encounter Qualified Code(s): S93.602A - Unspecified sprain of left foot, initial encounter Left ankle sprain Qualifiers: Encounter type: initial encounter Patient Disposition: Home, Self-Care Instructions: Ankle Sprain (ED), Foot Sprain (ED), Walking Boot (ED) Additional Instructions: I looked at your x-rays and I do not see any broken bones. The radiologist also looked at your x-rays and did not and broken bones. Your exam is consistent with a ankle and foot sprain Wear the walking boot for 1-2 weeks. Use the crutches for 3-7 days. Take ibuprofen 200 mg pills, 2 pills every 6 hours as needed for pain. Take Tylenol (acetaminophen) 500 mg pills, 2 pills every 4 to 6 hours as needed for pain. Follow-up with our orthopedic doctor on-call within 1-2 weeks. Please return to the emergency department if your symptoms get worse or if you develop any symptoms that are concerning to you. Prescriptions: No Action Plus 29 mg iron- 1 mg tablet 1 tab PO DAILY 30 Days Qty: 30 11RF labetalol 200 mg tablet 200 mg PO BID Qty: 120 3RF Referrals: Jonathan Espinal MD [Physician] - 2 weeks
== END 2022-09-23 05:09 | disposition home or self-care (01) ==
PROVIDERS: Emergency Provider Emergency Medicine Emergency Medical Services
DX: S93.602A Unspecified sprain of left foot, initial encounter (principal); S93.402A Sprain of unspecified ligament of left ankle, initial encounter; W10.8XXA Fall (on) (from) other stairs and steps, initial encounter; Y93.89 Activity, other specified; Y92.038 Other place in apartment as the place of occurrence of the external cause; Y99.9 Unspecified external cause status
CPT/HCPCS: 73600; 73630; 99283

== ENCOUNTER 2022-11-09 19:27 | Emergency (ER) | payer OTHER, SELFPAY ==
--- NOTE | ~2022-11-09 | CT_ITS ---
EXAMINATION: CT HEAD WITHOUT CONTRAST CLINICAL INFORMATION: Left eye pain. Swelling. Headache. COMPARISON: None. TECHNIQUE: Contiguous axial imaging was performed from the skull base to vertex without intravenous administration of contrast. Coronal and sagittal reformatted images are performed at the CT scanner. [This CT examination was performed using dose optimization techniques as appropriate, variously including the following: *Automated exposure control *Adjustment of mA and/or kV according to patient size (this includes techniques or standardized protocols for targeted exams where dose is matched to indication/reason for exam; i.e. extremities or head) *Use of iterative reconstruction technique] DLP: 655 mGy-cm. FINDINGS: There is no evidence of acute intracranial hemorrhage or territorial infarction. No abnormal mass-effect or midline shift is seen. Velázquez to white matter differentiation is well preserved. No extra-axial fluid collections are identified. The ventricles are normal in size. There is no abnormal attenuation within the brain parenchyma. There is no osseous abnormality. The mastoid air cells and visualized portions of the paranasal sinuses are well-aerated. CT/CT head/brain wo IV con IMPRESSION: No acute intracranial pathology.
--- NOTE | 2022-11-09 19:57 | ED_ITS ---
HPI - Eye Problem General Chief complaint: General Medical <NEREYDA Smallwood - Last Filed: 11/09/22 20:01> Stated complaint: Double vision <NEREYDA Smallwood - Last Filed: 11/09/22 20:01> Time Seen by Provider: 11/09/22 23:54 <NEREYDA Smallwood - Last Filed: 11/09/22 20:01> Source: patient <Obdulia Mathews MD - Last Filed: 11/10/22 00:34> Mode of arrival: ambulatory <Obdulia Mathews MD - Last Filed: 11/10/22 00:34> Limitations: no limitations <Obdulia Mathews MD - Last Filed: 11/10/22 00:34> History of Present Illness HPI Narrative: Patient comes to the emergency room complaining of 1 week of left eye swelling, pain, tearing, redness. Patient states that she has been applying warm compresses to the left eye. Recently, she noticed that she has trouble focusing with her left eye. Patient states that it almost feels like she is wearing someone else's glasses, but suddenly her vision all to corrects and is able to see normally again. Patient denies any floaters, no blind spots, no complete loss of vision. Patient states that is intermittent and it worsens with movement of her head. At this time, patient has no pain, no redness, comp laining that occasionally, she feels like she has trouble focusing her vision for a few seconds and then resolves. <Obdulia Mathews MD - Last Filed: 11/10/22 00:34> Related Data Home medications: Previous Rx's Medication Instructions Recorded vitamins with calcium 1 tab PO DAILY 30 days #30 tabs 09/25/20 no.72-iron 29 mg-folic acid 1 mg tablet ( Plus) labetalol 200 mg tablet 200 mg PO BID #120 tabs 10/16/20 <NEREYDA Smallwood - Last Filed: 11/09/22 20:01> Allergies/adverse reactions: Allergies Allergy/AdvReac Type Severity Reaction Status Date / Time No Known Allergies Allergy Verified 12/14/20 13:29 <NEREYDA Smallwood - Last Filed: 11/09/22 20:01> Review of Systems Review of Systems: Constitutional : No Weight loss, No Fever, No Chills, No Night Sweats, No Fatigue, No Malaise ENT/Mouth : No Hearing loss, No Ear Pain, No Nasal Congestion, No Sinus Pain, No Hoarseness, No sore throat, No Rhinorrhea, No Swallowing Difficulty Eyes: Complaining of left eye pain, swelling, tearing for 1 week, complaining of intermittent trouble focusing vision. Cardiovascular : No Chest Pain, No SOB, No Dyspnea on Exertion, No Orthopnea, No Edema, No Palpitations Respiratory : No Cough, No Sputum, No Wheezing, No Smoke Exposure, No Dyspnea Gastrointestinal : No Nausea, No Vomiting, No Diarrhea, No Constipation, No abd ominal Pain, No Hematochezia, No Melena Genitourinary : no irregular bleeding, No Dysuria, No Urinary Frequency, No Hematuria, No Urinary Incontinence, No Urgency, No Flank Pain, No Urinary Flow Changes, No Hesitancy Musculoskeletal : No joint pain, No Myalgias, No Joint Swelling Skin : No Skin Lesions, No rash Neuro : No Weakness, No Numbness, No Paresthesias, No Loss of Consciousness, No Dizziness, No Headache Psych : No Anxiety/Panic, No Depression, No SI/HI/AH/VH, No Social Issues, Heme/Lymph: No Bruising, No Bleeding,No Lymphadenopathy Endocrine : No Polyuria, No Polydipsia, No Temperature Intolerance <Obdulia Mathews MD - Last Filed: 11/10/22 00:34> [facility] Past Medical History Medical History: Medical History Environmental allergies Hypertension affecting Nasal congestion Obesity <NEREYDA Smallwood - Last Filed: 11/09/22 20:01> Surgical History: Surgical History No pertinent past surgical history <NEREYDA Smallwood - Last Filed: 11/09/22 20:01> Family History Family History: Family History Father HTN (hypertension) Diabetes mellitus Mother No problems noted. Brother No problems noted. Brother No problems noted. Brother No problems noted. Brother No problems noted. 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 Current occupational exposures/hazards: No <NEREYDA Smallwood - Last Filed: 11/09/22 20:01> Physical Exam Vital Signs: Vital Signs: Last Vital Signs Temp 98.1 F 11/10/22 00:24 Pulse 81 11/10/22 00:24 Resp 18 11/10/22 00:24 BP 145/106 H 11/10/22 00:24 Pulse Ox 99 11/10/22 00:24 O2 Del Method 11/10/22 00:24 BMI result Body Mass Index 82.7 <NEREYDA Smallwood - Last Filed: 11/09/22 20:01> Vital Signs: Last Vital Signs Temp 98.1 F 11/10/22 00:24 Pulse 81 11/10/22 00:24 Resp 18 11/10/22 00:24 BP 145/106 H 11/10/22 00:24 Pulse Ox 99 11/10/22 00:24 O2 Del Method 11/10/22 00:24 BMI result Body Mass Index 82.7 <Obdulia Mathews MD - Last Filed: 11/10/22 00:34> Const: Other: Appearance: Alert. Oriented X3. No acute distress. Eyes: Pupils equal, round and reactive to light. There is no redness, no swelling, normal sclera. Fluorescein stain test negative for corneal abrasions. Eye pressure bilaterally 50 mg of mercury. Right eye acuity 20/25, left eye 20/70 ENT: Pharynx normal. Neck: Normal inspection. Neck supple. No lymph nodes noted. No crepitus CVS: Normal heart rate and rhythm. Pulses normal. Normal S1 and S2 Respiratory: No respiratory distress. Breath sounds normal. No Wheezing. No rales Abdomen: Soft and nontender. No rigidity. No distention. Skin: Skin warm and dry. Normal skin color. Normal skin turgor. Extremities: No lower extremity edema. No Lacerations. No Rash Neuro: Oriented X 3. No motor deficit. No sensory deficit. Moving all extremities. No slurred speech. CN 2 through 12 grossly intact Psych: calm, cooperative, normal affect <Obdulia Mathews MD - Last Filed: 11/10/22 00:34> Course Course Course Narrative: RME - 37 yo female presenting to the ER for evaluation of left eye pressure, left eye pain, left eye swelling x1 week and new onset double vision and blurred vision in both eyes since yesterday. Feels like she has someone else's glasses on. No history of migraines. BP elevated 170/110 in triage. Hx gestational HTN but got off meds shortly after having her baby. Plan: CT head <NEREYDA Smallwood - Last Filed: 11/09/22 20:01> Medical Decision Making Medical Decision Making [facility] Narrative: Patient's hematology and chemistry within normal limits, head CT does not show any acute findings. -physical exam of the eye -showed no acute abnormalities either. Given the patient's history, it is possible the patient may have uveitis -I discussed with the patient at this time we will not start any ophthalmologic medication. -patient was given the phone number for Dr. Campos, from Ophthalmology, patient instructed to call this morning. -patient was noted to have high blood pressure readings. Patient does not have the diagnosis of hypertension. Patient instructed to keep a log of her blood pressures and to follow up with her primary care physician <Obdulia Mathews MD - Last Filed: 11/10/22 00:34> Differential Diagnosis Differential Diagnoses: The differential diagnosis associated with the presentation includes (Uveitis, corneal abrasion, conjunctivitis) <Obdulia Mathews MD - Last Filed: 11/10/22 00:34> Lab Data [facility] Lab Attestation statement: I reviewed the patient's lab results. <Obdulia Mathews MD - Last Filed: 11/10/22 00:34> Result Diagrams: 11/09/22 22:30 11/09/22 22:30 <NEREYDA Smallwood - Last Filed: 11/09/22 20:01> Labs: Lab Results 11/09/22 11/09/22 11/09/22 Range/Units 22:30 22:30 22:40 WBC 10.8 (4.8-10.8) X10*3/uL RBC 4.52 (4.20-5.50) X10*6/uL Hgb 11.9 L (12.0-16.0) g/dl Hct 37.2 (37.0-47.0) % MCV 82.3 (80.0-98.0) fL MCH 26.3 L (27.0-33.0) pg MCHC 32.0 (31.0-35.0) g/dl RDW 13.5 (11.0-16.0) % Plt Count 316 (160-400) X10*3/uL MPV 9.5 (9.4-12.3) fL Immature Gran % (Auto) 0.3 (0.0-0.4) % Neut % (Auto) 58.6 (45-73) % Lymph % (Auto) 31.5 (20-40) % [place] % (Auto) 5.7 (2-11) % Eos % (Auto) 3.1 (0-4) % Baso % (Auto) 0.8 (0-2) % Lymph # (Auto) 3.4 (1.2-4.9) X10*3/uL [place] # (Auto) 0.6 (0.1-1.2) X10*3/uL Eos # (Auto) 0.3 (0.0-0.4) X10*3/uL Baso # (Auto) 0.1 (0.0-0.2) X10*3/uL Abs Immat Gran (auto) 0.03 (0.00-0.03) X10*3/uL Absolute Neuts (auto) 6.3 (2.0-8.3) x10*3/uL Absolute Nucleated RBC 0.000 (0.0-0.012) X10*3/uL Nucleated RBC % (auto) 0.0 (0.0-0.2) /100WBC Sodium 140 (135-145) mmol/L Potassium 3.6 (3.3-5.1) mmol/L Chloride 110 H (96-108) mmol/L Carbon Dioxide 22 (22-29) mmol/L Anion Gap 12 (12-20) BUN 9 (9-16) mg/dL Creatinine 0.76 (0.5-1.4) mg/dL Estim Creat Clear Calc 177.7 Estimated GFR > 60 Random Glucose 104 (60-115) mg/dL Calcium 8.8 (8.4-10.2) mg/dL Magnesium 1.9 (1.6-2.6) mg/dL Total Bilirubin 0.4 (0.0-1.0) mg/dL Direct Bilirubin < 0.2 (0.0-0.5) mg/dL AST 13 (5-31) U/L ALT 9 (0-31) U/L Alkaline Phosphatase 59 (39-117) U/L Total Protein 6.4 L (6.5-8.0) g/dL Albumin 4.1 (3.5-5.0) g/dL Urine Color Yellow Urine Appearance Clear Urine pH 5.5 (5.0-9.0) Ur Specific [place] 1.025 (1.005-1.025) Urine Protein 100 (2+) H (Neg-Trace) mg/dL Urine Glucose (UA) Negative (Negative) mg/dL Urine Ketones Trace (Negative) mg/dL Urine Blood Large (3+) H (Negative) Urine Nitrite Negative (Negative) Ur Leukocyte Esterase Trace H (Negative) Urine RBC >20 H (0-2) /HPF Urine WBC 6-10 H (0-5) /HPF Ur Squamous Epith Cells 6-10 (0-2) /HPF Urine Bacteria None Seen (None Seen) Hyaline Casts 0-2 (0-2) /LPF <NEREYDA Smallwood - Last Filed: 11/09/22 20:01> Lab Results 11/09/22 11/09/22 11/09/22 Range/Units 22:30 22:30 22:40 WBC 10.8 (4.8-10.8) X10*3/uL RBC 4.52 (4.20-5.50) X10*6/uL Hgb 11.9 L (12.0-16.0) g/dl Hct 37.2 (37.0-47.0) % MCV 82.3 (80.0-98.0) fL MCH 26.3 L (27.0-33.0) pg MCHC 32.0 (31.0-35.0) g/dl RDW 13.5 (11.0-16.0) % Plt Count 316 (160-400) X10*3/uL MPV 9.5 (9.4-12.3) fL Immature Gran % (Auto) 0.3 (0.0-0.4) % Neut % (Auto) 58.6 (45-73) % Lymph % (Auto) 31.5 (20-40) % [place] % (Auto) 5.7 (2-11) % Eos % (Auto) 3.1 (0-4) % Baso % (Auto) 0.8 (0-2) % Lymph # (Auto) 3.4 (1.2-4.9) X10*3/uL [place] # (Auto) 0.6 (0.1-1.2) X10*3/uL Eos # (Auto) 0.3 (0.0-0.4) X10*3/uL Baso # (Auto) 0.1 (0.0-0.2) X10*3/uL Abs Immat Gran (auto) 0.03 (0.00-0.03) X10*3/uL Absolute Neuts (auto) 6.3 (2.0-8.3) x10*3/uL Absolute Nucleated RBC 0.000 (0.0-0.012) X10*3/uL Nucleated RBC % (auto) 0.0 (0.0-0.2) /100WBC Sodium 140 (135-145) mmol/L Potassium 3.6 (3.3-5.1) mmol/L Chloride 110 H (96-108) mmol/L Carbon Dioxide 22 (22-29) mmol/L Anion Gap 12 (12-20) BUN 9 (9-16) mg/dL Creatinine 0.76 (0.5-1.4) mg/dL Estim Creat Clear Calc 177.7 Estimated GFR > 60 Random Glucose 104 (60-115) mg/dL Calcium 8.8 (8.4-10.2) mg/dL Magnesium 1.9 (1.6-2.6) mg/dL Total Bilirubin 0.4 (0.0-1.0) mg/dL Direct Bilirubin < 0.2 (0.0-0.5) mg/dL AST 13 (5-31) U/L ALT 9 (0-31) U/L Alkaline Phosphatase 59 (39-117) U/L Total Protein 6.4 L (6.5-8.0) g/dL Albumin 4.1 (3.5-5.0) g/dL Urine Color Yellow Urine Appearance Clear Urine pH 5.5 (5.0-9.0) Ur Specific [place] 1.025 (1.005-1.025) Urine Protein 100 (2+) H (Neg-Trace) mg/dL Urine Glucose (UA) Negative (Negative) mg/dL Urine Ketones Trace (Negative) mg/dL Urine Blood Large (3+) H (Negative) Urine Nitrite Negative (Negative) Ur Leukocyte Esterase Trace H (Negative) Urine RBC >20 H (0-2) /HPF Urine WBC 6-10 H (0-5) /HPF Ur Squamous Epith Cells 6-10 (0-2) /HPF Urine Bacteria None Seen (None Seen) Hyaline Casts 0-2 (0-2) /LPF <Obdulia Mathews MD - Last Filed: 11/10/22 00:34> Independent Interpretation I performed an independent interpretation of an: CT Scan <Obdulia Mathews MD - Last Filed: 11/10/22 00:34> Interpretation: My interpretation of CT scan of head: No intracranial bleed <Obdulia Mathews MD - Last Filed: 11/10/22 00:34> Radiology Impression Discussion of test interpretation with radiology: I have reviewed the radiologist's reading. <Obdulia Mathews MD - Last Filed: 11/10/22 00:34> Radiologist Impression: INDINGS: There is no evidence of acute intracranial hemorrhage or territorial infarction. No abnormal mass-effect or midline shift is seen. Velázquez to white matter differentiation is well preserved. No extra-axial fluid collections are identified. The ventricles are normal in size. There is no abnormal attenuation within the brain parenchyma. There is no osseous abnormality. The mastoid air cells and visualized portions of the paranasal sinuses are well-aerated. ? CT/CT head/brain wo IV con IMPRESSION: No acute intracranial pathology <Obdulia Mathews MD - Last Filed: 11/10/22 00:34> Discharge Plan Discharge Clinical Impression: Uveitis, HBP (high blood pressure) <NEREYDA Smallwood - Last Filed: 11/09/22 20:01> Patient Disposition: Home, Self-Care <NEREYDA Smallwood - Last Filed: 11/09/22 20:01> Instructions: Iritis (ED) <NEREYDA Smallwood - Last Filed: 11/09/22 20:01> Additional Instructions: Please follow-up with Ophthalmology and with your primary care physician tomorrow. If you have any worsening or new symptoms, please return to the emergency room or call 911. Please keep a log of your blood pressures in shared with her primary care physician. You may need to be started on blood pressure medications <NEREYDA Smallwood - Last Filed: 11/09/22 20:01> Prescriptions: No Action Plus 29 mg iron- 1 mg tablet 1 tab PO DAILY 30 Days Qty: 30 11RF labetalol 200 mg tablet 200 mg PO BID Qty: 120 3RF <NEREYDA Smallwood - Last Filed: 11/09/22 20:01> Referrals: Constantine Campos [Physician] - 11/10/22 9:00 am <NEREYDA Smallwood - Last Filed: 11/09/22 20:01>
[2022-11-09 20:00] VITALS: BP 173/119; RESP 16; O2SAT 998; BMI 82.7
[2022-11-09 22:35] LABS: Basophils Absolute Auto 0.1 X10*3/uL (0.0-0.2); Basophils Percent Auto 0.8 % (0-2); Eosinophils Absolute Auto 0.3 X10*3/uL (0.0-0.4); Eosinophils Percent Auto 3.1 % (0-4); Hematocrit 37.2 % (37.0-47.0); Hemoglobin 11.9 g/dl (12.0-16.0); Imm Gran Abs Auto 0.03 X10*3/uL (0.00-0.03); Imm Gran Pct Auto 0.3 % (0.0-0.4); Lymphocytes Absolute Auto 3.4 X10*3/uL (1.2-4.9); Lymphocytes Percent Auto 31.5 % (20-40); MANUAL DIFF FLAG NO; Mean Corpuscular Hemoglobin 26.3 pg (27.0-33.0); Mean Corpuscular Volume 82.3 fL (80.0-98.0); Mean Platelet Volume 9.5 fL (9.4-12.3); Monocytes Absolute Auto 0.6 X10*3/uL (0.1-1.2); Monocytes Percent Auto 5.7 % (2-11); Neutrophils Absolute Auto 6.3 x10*3/uL (2.0-8.3); Neutrophils Percent Auto 58.6 % (45-73); Platelet Count 316 X10*3/uL (160-400); Red Blood Count 4.52 X10*6/uL (4.20-5.50); Red Cell Distribution Width 13.5 % (11.0-16.0); White Blood Count 10.8 X10*3/uL (4.8-10.8)
[2022-11-09 22:38] VITALS: BP 165/92; PULSE 79; RESP 16; TEMP 36.6; O2SAT 97
[2022-11-09 22:46] LABS: Appearance Urine Clear; Color Urine Yellow; Glucose Urine UA Negative (Negative); Leukocyte Esterase Urine Trace (Negative); Nitrite Urine Negative (Negative); PH 5.5 (5.0-9.0); Specific Gravity - Urine 1.025 (1.005-1.025); UMIC TRIGGER UACC YES; Urine Blood Large (3+) (Negative); Urine Ketones Trace mg/dL (Negative); Urine Protein 100 (2+) mg/dL (Neg-Trace)
--- NOTE | 2022-11-09 22:49 | MHC.EDTECH ---
pt blood drawn ,urine sample collected and sent to lab ,visual acuity check done .
[2022-11-09 22:51] LABS: Bacteria Urine None Seen (None Seen); Hyaline Casts Urine 0-2 /LPF (0-2); RBC Urine >20 /HPF (0-2); UACC Culture Trigger YES
[2022-11-09 23:03] LABS: Alanine Aminotransferase 9 U/L (0-31); Albumin Level 4.1 g/dL (3.5-5.0); Alkaline Phosphatase 59 U/L (39-117); Anion Gap 12 (12-20); Aspartate Amino Transferase 13 U/L (5-31); Bilirubin Direct < 0.2 mg/dL (0.0-0.5); Bilirubin Total 0.4 mg/dL (0.0-1.0); Blood Urea Nitrogen 9 mg/dL (9-16); Calcium 8.8 mg/dL (8.4-10.2); Carbon Dioxide 22 mmol/L (22-29); Chloride 110 mmol/L (96-108); Creatinine Clr Calc Pharmacy 177.7; Estimated Glomerular Filt Rate > 60; Glucose Random 104 mg/dL (60-115); Magnesium 1.9 mg/dL (1.6-2.6); Potassium 3.6 mmol/L (3.3-5.1); Sodium 140 mmol/L (135-145); Total Protein 6.4 g/dL (6.5-8.0)
[2022-11-10 00:24] VITALS: BP 145/106; PULSE 81; RESP 18; TEMP 36.7; O2SAT 99
== END 2022-11-10 00:43 | disposition home or self-care (01) ==
PROVIDERS: Physician Assistant; Emergency Provider Emergency Medicine
DX: H20.9 Unspecified iridocyclitis (principal); R03.0 Elevated blood-pressure reading, without diagnosis of hypertension; H57.12 Ocular pain, left eye
CPT/HCPCS: 36415; 70450; 80048; 80076; 81001; 83735; 85025; 87086; 99283; 99284